=== PATIENT | male | born 1980 | race Caucasian/White ===

== ENCOUNTER 2022-04-12 13:13 | Inpatient (IN) ==
[2022-04-12 15:10] LABS: Basophils # (auto) 0.04 K/uL (0-0.2); Basophils % (auto) 0.4 %; Eosinophils # (auto) 0.16 K/uL (0-0.50); Eosinophils % (auto) 1.8 %; Hematocrit (blood only) 44.6 % (42.0-52.0); Hemoglobin 16.8 g/dl (14.0-18.0); Immature Granulocytes # (auto) 0.04 K/uL (0.01-0.20); Immature Granulocytes % (auto) 0.4 %; Lymphocytes # (auto) 2.96 K/uL (1.2-3.4); Lymphocytes % (auto) 32.8 %; Mean Corpuscular Hemoglobin 37.2 pg (25.0-34.0); Mean Corpuscular Hgb Conc 37.7 g/dL (32.0-36.0); Mean Corpuscular Volume 98.7 fL (80.0-100.0); Mean Platelet Volume 9.6 fL (9.4-12.4); Monocytes # (auto) 0.82 K/uL (0.11-0.59); Monocytes % (auto) 9.1 %; Neutrophils # (auto) 5.01 K/uL (1.40-6.50); Neutrophils % (auto) 55.5 %; Platelet Count 255 K/uL (130-400); RDW Coefficient of Variation 13.8 % (11.5-14.5); RDW Standard Deviation 50.4 fL (36.4-46.3); Red Blood Count 4.52 M/uL (4.70-6.10); White Blood Count 9.03 K/ul (4.8-10.8)
[2022-04-12] MEDS ORDERED: ONDANSETRON INJ 2 MG/ML 2 ML VIAL IV STA (15:30)
[2022-04-12] MEDS ORDERED: SODIUM CHLORIDE 0.9% 1000ML 1,000 ML IV SCH (15:30)
[2022-04-12] MEDS ORDERED: MoRPHine SULFATE 4 MG/ML 1 ML CARP\\VIAL IV STA (15:30)
[2022-04-12] MEDS ORDERED: SODIUM CHLORIDE 0.9% 1000ML 1,000 ML IV ONE (15:30)
--- NOTE | 2022-04-12 15:47 | Emergency Department Note ---
History of Present Illness General Chief Complaint: Abdominal Pain Stated Complaint: abd pain, dr lizette Time Seen by Provider: 04/12/22 15:19 History of Present Illness Provider Complaint: abdominal pain Onset (ago): 2 week(s) Pain Consistency: constant Location: epigastric Radiation: none Severity: moderate Quality: + stabbing, + aching, + sharp and + dull Relieved By: + nothing Exacerbated By: + nothing Context: no foreign travel, no possible food poisoning, no sick contacts, no r ecent antibiotic use, no recent surgery/procedure or no recent injury Associated Symptoms: + nausea and + vomiting; no fever, no chills, no dysuria, no hematemesis, no hematochezia, no melena and no hematuria Home Medications Medication Instructions Recorded Confirmed Type losartan 50 mg tablet 50 mg PO DAILY 04/12/22 04/12/22 History pantoprazole 40 mg tablet,delayed 40 mg PO DAILY 04/12/22 04/12/22 History release Allergies Allergy/AdvReac Type Severity Reaction Status Date / Time No Known Allergies Allergy Verified 04/12/22 16:10 Past Med/Surg History Medical History (Updated 04/12/22 @ 16:27 by Ramos Powell) GERD (gastroesophageal reflux disease) HTN (hypertension) Surgical History (Updated 04/12/22 @ 16:23 by Ramos Powell) S/P orchiopexy Family History (Updated 04/12/22 @ 16:23 by Ramos Powell) Other Heart disease Social History (Updated 04/12/22 @ 16:24 by Ramos Powell) Hx Alcohol Use: Yes Alcohol Intake Frequency Comment: Binge drinker Hx Substance Use: No Feels Safe at Home: Yes Physical Exam Vital Signs: Vital Signs - 24 hr 04/12/22 13:15 04/12/22 15:49 04/12/22 15:50 Temperature 36.8 C Temperature Source Temporal Artery Sc an Pulse Rate 97 H 76 83 Pulse Rate from Sp O2 Sensor 76 83 Respiratory Rate 18 17 18 Blood Pressure 169/122 H Blood Pressure Sheron n 137 Pulse Oximetry 96 97 96 Oxygen Delivery Me thod Room Air Sepsis Recent Feve r Within 48 Hours No Sepsis New/Unexpla ined Change in Men sung Status No Sepsis Action Take n by Nursing No Action Required 04/12/22 16:00 04/12/22 16:00 04/12/22 16:10 Temperature Temperature Source Pulse Rate 78 80 Pulse Rate from Sp O2 Sensor 79 78 Respiratory Rate 16 16 Blood Pressure 176/111 H 175/120 H Blood Pressure Sheron n 132 138 Pulse Oximetry 96 95 Oxygen Delivery Me thod Sepsis Recent Feve r Within 48 Hours Sepsis New/Unexpla ined Change in Men sung Status Sepsis Action Take n by Nursing Physical Exam: Physical Exam GENERAL: He is oriented to person, place, and time. He appears well-developed and well-nourished. HENT: Exam performed. - Head: Normocephalic and atraumatic. EYES: Conjunctivae and EOM are normal. Right eye exhibits no discharge. Left eye exhibits no discharge. No scleral icterus. NECK: Normal range of motion. Neck supple. No JVD present. CV: Normal rate, regular rhythm, normal heart sounds and intact distal pulses. There is no peripheral edema. Palpable radial pulses bue. PULM/CHEST: Effort normal and breath sounds normal. No respiratory distress. No stridor. He has no wheezes. He has no rales. - Chest Wall: He exhibits no tenderness. ABD: The abdomen is soft. Bowel sounds are normal. He has no distension. No mass is present. There is tenderness to palpation of the epigastric area. There is no rebound, no guarding, no Oleary's sign and no tenderness at McBurney's point. Rovsig negative. MUSC/SKEL: Normal range of motion. There is no peripheral edema, tenderness or deformity. LYMPH: No cervical adenopathy. NEURO: He is alert and oriented to person, place, and time. He has normal strength. No cranial nerve deficit or sensory deficit. Coordination and gait normal. GCS eye subscore is 4. GCS verbal subscore is 5. GCS motor subscore is 6 . Cerebellar tests wnl. SKIN: Skin is warm and dry. He is not diaphoretic. PSYCH: He has a normal mood and affect. Behavior is normal. Judgment and thought content normal. Course Course 1518: The patient was evaluated in room C11. A complete history and physical exam was performed Administered Medications Sodium Chloride (Nss 1000ml) 1,000 mls @ 999 mls/hr IV .[id number] ONE Stop: 04/12/22 16:30 Last Admin: 04/12/22 15:44 Dose: 999 mls/hr Documented By: BELIA Sodium Chloride (Nss 1000ml) 1,000 mls @ 80 mls/hr IV .[id number] JAGDEEP Stop: 05/12/22 15:29 Last Admin: 04/12/22 16:19 Dose: 80 mls/hr Documented By: BELIA Discontinued Medications Morphine Sulfate (Morphine Sulfate 4 Mg/Ml 1 Ml Carp\\Vial) 4 mg IV NOW STA Stop: 04/12/22 15:31 Last Admin: 04/12/22 15:45 Dose: 4 mg Documented By: BELIA Ondansetron HCl (Ondansetron Inj 2 Mg/Ml 2 Ml Vial) 4 mg IV NOW STA Stop: 04/12/22 15:31 Last Admin: 04/12/22 15:43 Dose: 4 mg Documented By: BELIA Medical Decision Making Medical Records Attestation: I reviewed the patient's medical records. External medical records reviewed. Brooke internal communications manager was able to obtain the results of the CT abdomen pelvis with IV and oral contrast that was done at [facility] through [facility]. Patient CT abdomen pelvis shows mild. Pancreatic stranding suggestive of acute interstitial pancreatitis with a stated to correlate with lipase. There is a short segment of small bowel intussusception in the left mid abdomen most often an incidental finding of no clinical significance. Laboratory Data Attestation: I reviewed the patient's lab results. 04/12/22 14:40 04/12/22 14:40 Lab Results 04/12/22 04/12/22 04/12/22 Range/Units 14:40 14:40 15:40 WBC 9.03 (4.8-10.8) K/ul RBC 4.52 L (4.70-6.10) M/uL Hgb 16.8 (14.0-18.0) g/dl Hct 44.6 (42.0-52.0) % MCV 98.7 (80.0-100.0) fL MCH 37.2 H (25.0-34.0) pg MCHC 37.7 H (32.0-36.0) g/dL RDW Std Deviation 50.4 H (36.4-46.3) fL RDW Coeff of Henry 13.8 (11.5-14.5) % Plt Count 255 (130-400) K/uL MPV 9.6 (9.4-12.4) fL Immature Gran % (Auto) 0.4 % Neut % (Auto) 55.5 % Lymph % (Auto) 32.8 % Cam[place] % (Auto) 9.1 % Eos % (Auto) 1.8 % Baso % (Auto) 0.4 % Neut # (Auto) 5.01 (1.40-6.50) K/uL Lymph # (Auto) 2.96 (1.2-3.4) K/uL Cam[place] # (Auto) 0.82 H (0.11-0.59) K/uL Eos # (Auto) 0.16 (0-0.50) K/uL Baso # (Auto) 0.04 (0-0.2) K/uL Immature Gran # (Auto) 0.04 (0.01-0.20) K/uL Sodium 136 (136-145) mmol/L Potassium 3.8 (3.5-5.1) mmol/L Chloride 99 (98-107) mmol/L Carbon Dioxide 26 (21-32) mmol/L Anion Gap 11 (3-11) BUN 7 (6-23) mg/dl Creatinine 1.02 (0.6-1.4) mg/dl Est Cr Clr Drug Dosing 109.7 ml/min Est GFR ( Amer) 104.6 ml/min Est GFR (Non-Af Amer) 90.2 ml/min BUN/Creatinine Ratio 6.9 L (10-20) Glucose 85 (70-99(Fasting)) mg/dl Calcium 9.9 (8.5-10.1) mg/dl Total Bilirubin 0.7 (0.2-1.0) mg/dl AST 17 (13-39) U/L ALT 14 (7-52) U/L Alkaline Phosphatase 87 (34-104) U/L Total Protein 7.7 (6.0-8.3) gm/dl Albumin 4.4 (3.4-5.0) gm/dl Globulin 3.3 (2.5-4.0) gm/dl Albumin/Globulin Ratio 1.3 (0.9-2) Lipase 538 H (11-82) U/L SARS-CoV-2, RNA, NAAT NEGATIVE (NEGATIVE) MDM Narrative Vital signs stable. Labs show an elevated lipase. CT of the abdomen pelvis done outpatient shows pancreatitis. There was a incidental finding of left mid abdominal intussusception. Patient with no pain on palpation of the left lower quadrant or left upper quadrant. This is again thought to be incidental no need for repeat emergent imaging in the emergency department at this time. Patient will be admitted to the [facility] hospitalist team Dr. Etienne notified. 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 pantoprazole 40 mg tablet,delayed release (DR/EC) 40 mg PO DAILY Referrals Referrals: Ndaine Waters CRNP [Primary Care Provider] -
[2022-04-12 16:03] LABS: Albumin Globulin Ratio 1.3 (0.9-2); Albumin Level 4.4 gm/dl (3.4-5.0); BUN Creatinine Ratio 6.9 (10-20); Bilirubin,Total 0.7 mg/dl (0.2-1.0); Calcium 9.9 mg/dl (8.5-10.1); Creatinine Clr Calc Pharmacy 109.7 ml/min; Est GFR (African American) 104.6 ml/min; Est GFR (Non-African American) 90.2 ml/min; Globulin 3.3 gm/dl (2.5-4.0); Potassium 3.8 mmol/L (3.5-5.1); Total Protein 7.7 gm/dl (6.0-8.3)
--- NOTE | 2022-04-12 16:26 | History & Physical Report ---
Date of Service April 12, 2022 Assessment & Plan (1) Pancreatitis: (2) Epigastric pain: Plan: Patient is a 41-year-old male with PMH HTN, tobacco use presented to ER with complaint of nonradiating sharp epigastric abdominal pain x 2 weeks, aggravated with eating with associated vomiting. In ER afebrile. No leukocytosis. Lipase: 538. LFTs WNL 04/12/[address] abdomen pelvis with IV and oral contrast: 1. mild peripancreatic stranding suggestive of acute interstitial pancreatitis. Correlate with lipase 2. Short segment small bowel intussusception in the left mid abdomen. This most often an incidental finding of no clinical significance. However, would consider short-term follow-up CT or MRI enterography to ensure resolution and exclude underlying mass lead point. 3. Mild thickened appearance of the descending and sigmoid colon wall could represent mild colitis. There is mild diverticulosis without focal inflammation to suggest acute diverticulitis. 4. A few small hypodense liver lesions are indeterminate. If there is no history of malignancy these are most likely benign. If further characterization is desired, consider contrast-enhanced MRI of the abdomen. In ER given 1 L NSS, Zofran, morphine Pancreatitis likely secondary to alcohol use Start LR at 200ml/hour NPO Morphine as needed CBC, CMP, lipase in a.m. (3) HTN (hypertension): Plan: History hypertension. Not treated with medications for over 6 years per patient self discontinuing BP is elevated in ER at 169/122 PCPs office prescribed losartan 50 mg daily yesterday. Did not start taking yet Start losartan Monitor BP. May need to add additional agent (4) Abnormal CT of the abdomen: Plan: 04/12/[address] abdomen pelvis with IV and oral contrast: Short segment small bowel intussusception in the left mid abdomen. This most often an incidental finding of no clinical significance. However, would consider short-term follow-up CT or MRI enterography to ensure resolution and exclude underlying mass lead point. Mild thickened appearance of the descending and sigmoid colon wall could represent mild colitis. There is mild diverticulosis without focal inflammation to suggest acute diverticulitis. A few small hypodense liver lesions are indeterminate. If there is no history of malignancy these are most likely benign. If further characterization is desired, consider contrast-enhanced MRI of the abdomen. General surgery consult Patient will likely need further outpatient follow-up (5) GERD (gastroesophageal reflux disease): Plan: Continue PPI (6) Tobacco use: Plan: Smoking cessation encouraged Nicotine patch DVT Prophylaxis SCDs Follows with Nadine ACOSTA at [facility] for routine care Pt was seen and care coordinated with Dr Etienne. See addendum I spent a total of 75 minutes reviewing notes, outpatient records, labs, medication, coordinating, documenting and providing care for this patient excluding time spent in the performance of separately billed services. History of Present Illness Chief Complaint: Abdominal pain Primary Care Provider: DAVE Fitzgerald Patient is a 41-year-old male with PMH HTN, tobacco use presented to ER with complaint of abdominal pain x 2 weeks. History obtained from patient and outpatient chart review. Patient reports sharp epigastric pain that is nonradiating. Abdominal pain is aggravated with eating. If he eats more than a very small amount has nausea with associated vomiting. Reports has been having small amount loose stool daily. Has been taking OTC reflux medicine without relief. Drinks 3-6 beers daily. Last drink reported 3 days ago. Denies history of alcohol withdrawal, seizures or DTs. History hypertension however has not been taking medications for over 6 years. Reports when he was previously on BP meds he felt like he had dizziness and headache with taking medicine so he stopped taking. Yesterday established care with [facility] provider. Had labs drawn yesterday with elevated lipase. Today had CT abdomen pelvis that suggested pancreatitis and patient was referred to ER for further evaluation. Reports chronic intermittent non-productive cough that he relates to smoking. Yesterday in clinic had elevated BP of 166/88 and he was prescribed losartan, however has not started yet. Denies fever/chills, diaphoresis, hematemesis, hematochezia, melena, MONTERO, dizziness, syncope, vision changes, neck pain, CP, SOB, orthopnea, palpitations, sore throat, choking, otalgia, rhinorrhea, paresthesias, weakness, extremity weakness, extremity edema, rashes, urinary symptoms. Denies history of abdominal surgery. Denies ill contacts. Outpatient records reviewed 04/12/[address] abdomen pelvis with IV and oral contrast: 1. mild peripancreatic stranding suggestive of acute interstitial pancreatitis. Correlate with lipase 2. Short segment small bowel intussusception in the left mid abdomen. This most often an incidental finding of no clinical significance. However, would consider short-term follow-up CT or MRI enterography to ensure resolution and exclude underlying mass lead point. 3. Mild thickened appearance of the descending and sigmoid colon wall could represent mild colitis. There is mild diverticulosis without focal inflammation to suggest acute diverticulitis. 4. A few small hypodense liver lesions are indeterminate. If there is no history of malignancy these are most likely benign. If further characterization is desired, consider contrast-enhanced MRI of the abdomen. Allergies Allergy/AdvReac Type Severity Reaction Status Date / Time No Known Allergies Allergy Verified 04/12/22 16:10 Home Medications Medication Instructions Recorded Confirmed Type losartan 50 mg tablet 50 mg PO DAILY 04/12/22 04/12/22 History pantoprazole 40 mg tablet,delayed 40 mg PO DAILY 04/12/22 04/12/22 History release Past Med/Surg History Medical History GERD (gastroesophageal reflux disease) HTN (hypertension) Tobacco use Surgical History S/P orchiopexy Family History Father Heart disease Fatal VT age 59 Mother Heart disease Brother Heart disease Fatal VT age 63 Social History Smoking Status: Current every day smoker Tobacco Type: Cigarettes Cigarettes Per Day: 1 pack/day x25 years; Hx Alcohol Use: Yes (3-6 beers daily) Hx Substance Use: No Feels Safe at Home: Yes Review of Systems Review of Systems: All systems reviewed & are unremarkable except as noted in HPI & below Physical Exam Physical Exam: General: no acute distress, WDWN Head: normocephalic, atraumatic Eyes: conjunctiva non-injected, anicteric ENT: normal inspection external ears, nose, mucous membranes moist Neck: supple, trachea midline, non-tender Lungs: no respiratory distress, +wheezing throughout, no rhonchi/rales CV: RRR, no murmur, no pretibial edema Abd: normal BS, soft, +tenderness to palpation epigastric without rebound or guarding Ext: no cyanosis, no calf tenderness Neuro: A&O x 3, no focal deficits noted, normal affect Skin: warm, dry Results & Data Results & Data ([facility]) Vital Signs (Past 12 Hours) Vital Signs Temp Pulse Resp BP Pulse Ox O2 Del Method 04/12/22 16:10 80 16 175/120 H 95 04/12/22 16:00 78 16 96 04/12/22 16:00 176/111 H 04/12/22 15:50 83 18 96 04/12/22 15:49 76 17 97 04/12/22 13:15 36.8 C 97 H 18 169/122 H 96 Room Air Laboratory Results Short CBC 04/12/22 Range/Units 14:40 WBC 9.03 (4.8-10.8) K/ul Hgb 16.8 (14.0-18.0) g/dl Hct 44.6 (42.0-52.0) % Plt Count 255 (130-400) K/uL BMP 04/12/22 14:40 Sodium 136 Potassium 3.8 Chloride 99 Carbon Dioxide 26 BUN 7 Creatinine 1.02 Glucose 85 Calcium 9.9 Liver Function 04/12/22 Range/Units 14:40 Total Bilirubin 0.7 (0.2-1.0) mg/dl AST 17 (13-39) U/L ALT 14 (7-52) U/L Alkaline Phosphatase 87 (34-104) U/L Albumin 4.4 (3.4-5.0) gm/dl Supervising Physician Co-Signing Physician Notes I have seen and examined the patient and have discussed the case with the provider above. I agree with the assessment and plan as stated. The patient is a 41-year-old man with ongoing tobacco use and heavy alcohol use who presents with acute pancreatitis. Symptoms have been ongoing for the past 2 weeks. He also reports having a small amount of loose stool daily. Last drink was reported to be last night. He denies history of alcohol withdrawal. On physical exam he is in no acute distress. There is no jaundice and he has no gross focal neurologic deficits. Lungs are clear to auscultation bilaterally and cardiac exam is benign. He is euvolemic to dry on exam. There is epigastric discomfort but otherwise the abdomen is benign, soft and nontender nondistended. He has no guarding with abdomen palpation. Work-up in the ER reveals a CBC with no leukocytosis, H&H of 16.8/44.6. Normal platelets. Chemistry is within normal limits. Liver function panel is unremarkable. Lipase is elevated at 538. There was no onsite imaging performed however there was an outpatient CT with IV contrast and oral contrast performed today revealing mild peripancreatic stranding suggestive of pancreatitis. There was also a short segment of small bowel intussusception in the left midabdomen and mildly thickened descending and sigmoid colon which could represent a mild colitis. There were also a few hypodense liver lesions that were indeterminate. 1. Acute pancreatitis possible secondary to alcohol use 2. hypertensive urgency 3. heavy alcohol use 4. smoking Cont aggressive IVF resuscitation and bowel rest for treatment of acute pancreatitis. There is no evidence of alcohol withdrawal, however, his blood pressure is very elevated. He was started on losartan 40mg daily as outpatient but this has not yet been started. This was started today and hydralazine also ordered. AWSS scale for Ativan as needed if withdrawal symptoms begin. MR abdomen to better elucidate liver lesions seen on outpatient CT. Smoking and alcohol cessation was strongly recommended. The patient verbalized understanding. Surgery consulted regarding finding of small bowel intussusception. DO Lowell (1) Pancreatitis Acute pancreatitis complication: unspecified Chronicity: acute Pancreatitis type: alcohol induced Qualified Code(s): K85.20 - Alcohol induced acute pancreatitis without necrosis or infection
[2022-04-12] MEDS ORDERED: LOSARTAN POTASSIUM 50 MG TAB PO ONE (17:08)
[2022-04-12] MEDS ORDERED: ACETAMINOPHEN 325 MG TAB PO PRN (18:11)
[2022-04-12] MEDS ORDERED: LACTATED RINGER'S 1,000 ML IV SCH (18:11)
[2022-04-12] MEDS ORDERED: ONDANSETRON INJ 2 MG/ML 2 ML VIAL IV PRN (18:11)
[2022-04-12] MEDS ORDERED: POLYETHYLENE (MIRALAX) 17 GM PACK PO PRN (18:11)
[2022-04-12] MEDS ORDERED: hydrALAZINE HCL 20 MG/ML VIAL IV STA (18:35)
[2022-04-12] MEDS ORDERED: THIAMINE HCL 100 MG/ML 2 ML VIAL IM STA (18:36)
[2022-04-12] MEDS ORDERED: LORazepam 2 MG/1 ML VIAL IV PRN (18:36)
[2022-04-12] MEDS: NICOTINE 21 MG/24 HR TDSY TD SCH (19:26)
--- NOTE | 2022-04-12 19:58 | Surgery Consultation ---
Date of Consultation April 12, 2022 Assessment & Plan (1) Abnormal CT of the abdomen: Patient has been admitted on the hospitalist service. Recommend proceeding as follows: Implement n.p.o. status due to the patient's noted pancreatitis Provide analgesics Provide antiemetics Provide aggressive intravenous fluids. He is currently receiving lactated Ringer's at 200 cc/h As noted we do not have the images available of patient's CT scan. We will request that these images get pushed to the [facility] synapse so they can be viewed. The primary service has ordered an MRI of the patient's abdomen for further evaluation of the intussusception. We will follow for the results of the study. At the present time the patient's abdominal exam is benign and he does not need urgent surgical intervention Supervising Physician Co-Signing Physician Notes Patient discussed with RANDI Joy, labs reviewed, agree with above. 41-year-old male referred after outpatient CT scan for 2 weeks of epigastric a bdominal pain showed pancreatitis. Also incidental noted short segment intussusception which is likely secondary to peristalsis but recommended short interval follow-up with CT enterography or MRI. Currently stable, would recommend right upper quadrant ultrasound to rule out cholelithiasis as a possibility for his cause of pancreatitis. Short segment intussusception is likely just peristalsis, but follow-up imaging could be performed on an outpatient basis. Would also recommend GI consult. History of Present Illness Reason for Consultation: Possible small bowel intussusception Attending Physician: Jennifer Etienne, History of Present Illness This is a 41-year-old male who presented to [facility] at the recommendation of his outpatient providers. The patient notes that he has been having approximately 2 weeks of epigastric pain. He notes that the pain is worse with eating and when he does eat he gets nausea and vomiting. He notes that the pain radiates to his back. He has never had pain like this before. As noted the pain is worse after he eats. He does not note any palliative factors other than pain medications that were administered. He denies any fevers, shakes, or chills. The patient does note that since his abdominal pain began he has been having loose bowel movements. He notes that at times his bowel movements do appear black/melanotic. He notes that he has never had a colonoscopy in the past. Patient notes that he does consume alcohol approximately 1 case of beer per week. 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 Since arrival to [facility] the patient has had labs and imaging which independent reviewed. CBC revealed white blood cell count, hemoglobin, hematocrit, and platelet count were normal. Chemistry profile showed sodium and potassium were normal. His BUN and creatinine were noted to be normal. His LFTs were noted to be nonelevated. His lipase was elevated at 538. A COVID test was negative. The patient reportedly had an outpatient CT scan at [facility]. The images were not reviewed but per reports said that the patient had mild peripancreatic stranding suggestive of acute pancreatitis. There is also a short segment of small bowel intussusception in the left mid abdomen. The interpreting radiologist noted that this could have been a incidental finding of no clinical significance. There is also some mild thickening of the descending and sigmoid colon which were felt to represent colitis. Mild diverticulosis was noted without any findings suggestive of acute diverticulitis. At the time of my interview the patient was resting comfortably in bed he was in no distress. Allergies Allergy/AdvReac Type Severity Reaction Status Date / Time No Known Allergies Allergy Verified 04/12/22 16:10 Home Medications Medication Instructions Recorded Confirmed Type losartan 50 mg tablet 50 mg PO DAILY 04/12/22 04/12/22 History pantoprazole 40 mg tablet,delayed 40 mg PO DAILY 04/12/22 04/12/22 History release Patient History Medical History GERD (gastroesophageal reflux disease) HTN (hypertension) Tobacco use Surgical History S/P orchiopexy Family History Father Heart disease Fatal IA age 59 Mother Heart disease Brother Heart disease Fatal IA age 63 Social History Smoking Status: Current every day smoker Tobacco Type: Cigarettes Cigarettes Per Day: 1 pack/day x25 years; Hx Alcohol Use: Yes (3-6 beers daily) Hx Substance Use: No Feels Safe at Home: Yes Review of Systems Constitutional: no fever and no chills Eyes: no eye pain Ear, Nose, Mouth, Throat: no ear pain Respiratory: no cough and no dyspnea Cardiovascular: no chest pain Gastrointestinal: as per Subjective / HPI Genitourinary: no dysuria Musculoskeletal: + back pain (Radiating from abdomen) Integumentary: no rash Neurologic: no localized weakness Physical Exam Constitutional: WD/WN, vitals as above Eyes: + anicteric sclerae; no conjunctival abnormality ENMT: Ears: no hearing impairment and no external ear abnormality Mouth: no oropharynx abnormality Neck: trachea midline Respiratory: normal respiratory effort; no respiratory distress and no labored breathing Cardiovascular: Rate/Rhythm: regular rate and regular rhythm Gastrointestinal (Abdomen): Abdomen is soft, nonrigid, nondistended. There is no evidence of Cobb Lopes's or Norton sign. There is no rebound tenderness or guarding with palpation. Patient did have pain noted in the epigastric region with deep palpation. He did not have any pain in any other quadrant or region of his abdomen. Musculoskeletal: No calf tenderness Skin: no rashes Neurologic: moves all extremities Psychiatric: A+Ox3, euthymic affect Results & Data ([facility]) Vital Signs (Past 12 Hours) Vital Signs Temp Pulse Pulse Resp BP BP Pulse Ox 04/12/22 19:45 04/12/22 19:27 36.6 C 65 18 168/113 H 93 04/12/22 19:02 62 04/12/22 18:12 36.7 C 18 205/139 H 96 04/12/22 18:02 74 18 151/114 H 96 04/12/22 17:00 73 20 95 04/12/22 17:00 177/117 H 04/12/22 16:30 76 18 95 04/12/22 16:30 165/113 H 04/12/22 16:20 175/120 H 04/12/22 16:20 77 16 97 04/12/22 16:10 80 16 175/120 H 95 04/12/22 16:00 78 16 96 04/12/22 16:00 176/111 H 04/12/22 15:50 83 18 96 04/12/22 15:49 76 17 97 04/12/22 13:15 36.8 C 97 H 18 169/122 H 96 O2 Del Method 04/12/22 19:45 Room Air 04/12/22 19:27 Room Air 04/12/22 19:02 04/12/22 18:12 Room Air 04/12/22 18:02 Room Air 04/12/22 17:00 04/12/22 17:00 04/12/22 16:30 04/12/22 16:30 04/12/22 16:20 04/12/22 16:20 04/12/22 16:10 04/12/22 16:00 04/12/22 16:00 04/12/22 15:50 04/12/22 15:49 04/12/22 13:15 Room Air PG Care Time/CCT Total # of Minutes Spent Total Time Spent with Patient: Total time spent is greater than 50% in coordination of care (as documented) at patient's floor/unit and/or counseling patient: Coding Level of Care Code INP/OBS CONSULT LVL 5, [address] of the abdomen R93.5
[2022-04-12] MEDS: LACTATED RINGER'S 1,000 ML IV SCH (20:17)
[2022-04-12] MEDS: MoRPHine SULFATE 4 MG/ML 1 ML CARP\\VIAL IV PRN (20:17)
[2022-04-12] MEDS ORDERED: GADOXETATE DISODIUM IV ONE (23:10)
[2022-04-13] MEDS: LACTATED RINGER'S 1,000 ML IV SCH ×5 (03:16→23:35)
--- NOTE | 2022-04-13 06:48 | Ultrasound Report ---
ABDOMINAL ULTRASOUND, RIGHT UPPER QUADRANT HISTORY: Acute epigastric abdominal pain pancreatitis. COMPARISON: MRI abdomen of same day. FINDINGS: Pancreas: The pancreas is mostly obscured by bowel gas. No acute peripancreatic fluid collection iden tified by ultrasound. Liver: There are 3 hyperechoic lesions within the right lobe of the liver, largest of which measures 1.7 x 1.1 x 1.5 cm. The 2 other lesions are subcentimeter. Hepatopedal flow within the main portal ve in. Gallbladder: No gallbladder wall thickening. Trace gallbladder sludge. No gallstones. CBD: 0.4 cm Right kidney: No hydronephrosis. 1.3 x 1.2 x 1.3 cm septated cyst within the inferior pole right kidn ey. IMPRESSION: 1. The pancreas is mostly obscured by bowel gas. 2. No cholelithiasis or sonographic evidence of acute cholecystitis. 3. There are three indeterminate hyperechoic small lesions within the liver. Please refer to the MRI abdomen study of same day for additional details. ACT 112: Negative or not required by law. Electronically signed by: Thanh Morales M.D. 04/13/2022 6:45 AM
[2022-04-13] MEDS: PANTOprazole 40 MG TAB PO SCH (07:32)
[2022-04-13] MEDS: THIAMINE HCL 100 MG TAB PO SCH (07:33)
[2022-04-13] MEDS: LOSARTAN POTASSIUM 50 MG TAB PO SCH (07:33)
[2022-04-13] MEDS: FOLIC ACID 1 MG TAB PO SCH (07:33)
[2022-04-13] MEDS: NICOTINE 21 MG/24 HR TDSY TD SCH (08:25)
[2022-04-13] MEDS: MoRPHine SULFATE 4 MG/ML 1 ML CARP\\VIAL IV PRN (08:32)
[2022-04-13 09:27] LABS: Hematocrit (blood only) 40.3 % (42.0-52.0); Hemoglobin 14.5 g/dl (14.0-18.0); Mean Corpuscular Hemoglobin 36.4 pg (25.0-34.0); Mean Corpuscular Volume 101.3 fL (80.0-100.0); Mean Platelet Volume 9.7 fL (9.4-12.4); Platelet Count 225 K/uL (130-400); RDW Coefficient of Variation 13.8 % (11.5-14.5); RDW Standard Deviation 51.4 fL (36.4-46.3); Red Blood Count 3.98 M/uL (4.70-6.10); White Blood Count 6.23 K/ul (4.8-10.8)
[2022-04-13 09:39] LABS: Albumin Globulin Ratio 1.3 (0.9-2); Albumin Level 3.6 gm/dl (3.4-5.0); BUN Creatinine Ratio 7.3 (10-20); Bilirubin,Total 0.8 mg/dl (0.2-1.0); Creatinine Clr Calc Pharmacy 136.4 ml/min; Est GFR (African American) 126.4 ml/min; Est GFR (Non-African American) 109.1 ml/min; Globulin 2.8 gm/dl (2.5-4.0); Potassium 3.9 mmol/L (3.5-5.1); Total Protein 6.4 gm/dl (6.0-8.3)
--- NOTE | 2022-04-13 12:07 | Magnetic Resonance Report ---
MR abdomen wo/w con HISTORY: 41 years-old Male indeterminate liver lesions on outpt CT follow-up study in a patient with indeterminate liver lesions COMPARISON: Ultrasound of same day, CT 04/22/2022 TECHNIQUE: Multiplanar multisequence MRI of the abdomen was obtained both with and without the use of 10 cc Gadavist FINDINGS: Bobbin Dumper localizer images demonstrate no gross extra abdominal abnormality. Mild to moderate interverteb ral disc space narrowing at L5-S1 with posterior disc osteophyte complex again noted. No acute fractu re identified. The spleen, gallbladder and adrenal glands are unremarkable. There is mild interstitial and peripancr eatic edema involving the body and tail of the pancreas. No pancreatic ductal dilation, pancreatic le marilin or peripancreatic fluid collection. The portal, splenic and superior mesenteric veins appear pat ent. Unremarkable aorta and IVC. No bowel obstruction or bowel wall thickening. Unremarkable soft tissues. Cortical scarring with atro phy of the mid to inferior pole left kidney. There are a few cysts again noted within the bilateral k idneys measuring up to 1.4 cm on the right and 1.6 cm on the left. A few cysts within the superior po le left kidney demonstrate areas of intrinsic increased T1 signal suggestive of proteinaceous or hemo rrhagic cysts, notably a 1.4 cm cyst of the superior pole left kidney with a thin internal septation. There are at least eight T2 hyperintense foci noted within the right hepatic lobe, the largest measur ing 1.1 cm on image 10 series 5. Most of these foci only measure a few millimeters and are too small to characterize. These lesions are difficult to evaluate secondary to motion artifact and small size. There is questioned mild peripheral discontinuous nodular enhancement within the 1.1 cm lesion. Unre markable MRCP images. The common bile duct is normal measuring 3 mm. No pancreatic ductal dilation. IMPRESSION: 1. Findings compatible with mild acute uncomplicated pancreatitis. No evidence of pancreatic necrosis or acute peripancreatic fluid collection. 2. Unremarkable gallbladder without biliary ductal dilation. 3. Several mostly subcentimeter hepatic lesions are suboptimally evaluated secondary to the small siz e and motion artifact and are favored to be benign. These may represent small hemangiomas. 4. Cortical scarring with severe atrophy of the mid to inferior pole left kidney. 5. Complex cysts of the superior pole left kidney including a 1.1 cm lesion with a central septation. Six-month follow-up ultrasound recommended. ACT 112: Negative or not required by law. The above report was generated using voice recognition software. It may contain grammatical, syntax o r spelling errors. Electronically signed by: Thanh Morales M.D. 04/13/2022 12:06 PM
--- NOTE | 2022-04-13 15:10 | Surgery Progress Note ---
Date of Service April 13, 2022 Assessment & Plan (1) Pancreatitis: Plan: 41-year-old male with pancreatitis and short segment intussusception on outpatient CT. Right upper quadrant ultrasound negative for gallstones, MRCP with no evidence of choledocholithiasis. MRI did not show intussusception or small bowel tumor. This was likely incidental and just found on CT during peristalsis. No surgical intervention indicated Surgery will sign off call with questions or concerns Admission and Anticipated Discharge Date Admission Date: April 12, 2022 Subjective 41-year-old male admitted with pancreatitis and incidental finding on outpatient CT of short segment intussusception. Feeling better, tolerating liquids. Denies significant alcohol use. Physical Exam Constitutional: WD/WN, vitals as above Gastrointestinal (Abdomen): normal bowel sounds, soft, nontender, no hepatosplenomegaly Results & Data ([facility]) Vital Signs (Past 12 Hours) Vital Signs Temp Pulse Pulse Resp BP Pulse Ox O2 Del Method 04/13/22 14:44 37.0 C 78 18 160/115 H 94 Room Air 04/13/22 10:48 36.7 C 69 18 164/103 H 94 Room Air 04/13/22 07:21 72 04/13/22 07:20 36.7 C 71 18 166/104 H 94 Room Air 04/13/22 03:26 36.7 C 75 18 147/102 H 94 Room Air Laboratory Results Laboratory Results - last 24 hr 04/12/22 04/12/22 04/12/22 14:40 14:40 15:40 WBC 9.03 RBC 4.52 L Hgb 16.8 Hct 44.6 MCV 98.7 MCH 37.2 H MCHC 37.7 H RDW Std Deviation 50.4 H RDW Coeff of Henry 13.8 Plt Count 255 MPV 9.6 Immature Gran % (Auto) 0.4 Neut % (Auto) 55.5 Lymph % (Auto) 32.8 Republic % (Auto) 9.1 Eos % (Auto) 1.8 Baso % (Auto) 0.4 Neut # (Auto) 5.01 Lymph # (Auto) 2.96 Republic # (Auto) 0.82 H Eos # (Auto) 0.16 Baso # (Auto) 0.04 Immature Gran # (Auto) 0.04 Sodium 136 Potassium 3.8 Chloride 99 Carbon Dioxide 26 Anion Gap 11 BUN 7 Creatinine 1.02 Est Cr Clr Drug Dosing 109.7 Est GFR ( Amer) 104.6 Est GFR (Non-Af Amer) 90.2 BUN/Creatinine Ratio 6.9 L Glucose 85 Calcium 9.9 Total Bilirubin 0.7 AST 17 ALT 14 Alkaline Phosphatase 87 Total Protein 7.7 Albumin 4.4 Globulin 3.3 Albumin/Globulin Ratio 1.3 Lipase 538 H SARS-CoV-2, RNA, NAAT NEGATIVE 04/13/22 04/13/22 08:40 08:40 WBC 6.23 RBC 3.98 L Hgb 14.5 Hct 40.3 L MCV 101.3 H MCH 36.4 H MCHC 36.0 RDW Std Deviation 51.4 H RDW Coeff of Henry 13.8 Plt Count 225 MPV 9.7 Immature Gran % (Auto) Neut % (Auto) Lymph % (Auto) Republic % (Auto) Eos % (Auto) Baso % (Auto) Neut # (Auto) Lymph # (Auto) Republic # (Auto) Eos # (Auto) Baso # (Auto) Immature Gran # (Auto) Sodium 136 Potassium 3.9 Chloride 105 Carbon Dioxide 26 Anion Gap 5 BUN 6 Creatinine 0.82 Est Cr Clr Drug Dosing 136.4 Est GFR ( Amer) 126.4 Est GFR (Non-Af Amer) 109.1 BUN/Creatinine Ratio 7.3 L Glucose 75 Calcium 9.0 Total Bilirubin 0.8 AST 14 ALT 10 Alkaline Phosphatase 65 Total Protein 6.4 Albumin 3.6 Globulin 2.8 Albumin/Globulin Ratio 1.3 Lipase 278 H SARS-CoV-2, RNA, NAAT Diagnostic Findings MR abdomen wo/w con HISTORY: 41 years-old Male indeterminate liver lesions on outpt CT follow-up study in a patient with indeterminate liver lesions COMPARISON: Ultrasound of same day, CT 04/22/2022 TECHNIQUE: Multiplanar multisequence MRI of the abdomen was obtained both with and without the use of 10 cc Gadavist FINDINGS: Senior Developer localizer images demonstrate no gross extra abdominal abnormality. Mild to moderate intervertebral disc space narrowing at L5-S1 with posterior disc osteophyte complex again noted. No acute fracture identified. The spleen, gallbladder and adrenal glands are unremarkable. There is mild interstitial and peripancreatic edema involving the body and tail of the pancreas. No pancreatic ductal dilation, pancreatic lesion or peripancreatic fluid collection. The portal, splenic and superior mesenteric veins appear patent. Unremarkable aorta and IVC. No bowel obstruction or bowel wall thickening. Unremarkable soft tissues. Cortical scarring with atrophy of the mid to inferior pole left kidney. There are a few cysts again noted within the bilateral kidneys measuring up to 1.4 cm on the right and 1.6 cm on the left. A few cysts within the superior pole left kidney demonstrate areas of intrinsic increased T1 signal suggestive of protein aceous or hemorrhagic cysts, notably a 1.4 cm cyst of the superior pole left kidney with a thin internal septation. There are at least eight T2 hyperintense foci noted within the right hepatic lobe, the largest measuring 1.1 cm on image 10 series 5. Most of these foci only measure a few millimeters and are too small to characterize. These lesions are difficult to evaluate secondary to motion artifact and small size. There is questioned mild peripheral discontinuous nodular enhancement within the 1.1 cm lesion. Unremarkable MRCP images. The common bile duct is normal measuring 3 mm. No pancreatic ductal dilation. IMPRESSION: 1. Findings compatible with mild acute uncomplicated pancreatitis. No evidence of pancreatic necrosis or acute peripancreatic fluid collection. 2. Unremarkable gallbladder without biliary ductal dilation. 3. Several mostly subcentimeter hepatic lesions are suboptimally evaluated secondary to the small size and motion artifact and are favored to be benign. These may represent small hemangiomas. 4. Cortical scarring with severe atrophy of the mid to inferior pole left kidney. 5. Complex cysts of the superior pole left kidney including a 1.1 cm lesion with a central septation. Six-month follow-up ultrasound recommended. PG Care Time/CCT Total # of Minutes Spent Total Time Spent with Patient: Total time spent is greater than 50% in coordination of care (as documented) at patient's floor/unit and/or counseling patient: Coding Level of Care Code 82608 SUB INP/OBS CARE 03/29MIN Diagnoses Pancreatitis K85.20 Acute pancreatitis complication: unspecified Chronicity: acute Pancreatitis type: alcohol induced (1) Pancreatitis Acute pancreatitis complication: unspecified Chronicity: acute Pancreatitis type: alcohol induced Qualified Code(s): K85.20 - Alcohol induced acute pancreatitis without necrosis or infection
--- NOTE | 2022-04-13 17:18 | Hospitalist Progress Note ---
Date of Service April 13, 2022 Assessment & Plan (1) Pancreatitis: (2) Epigastric pain: Plan: Patient is a 41-year-old male with PMH HTN, tobacco use presented to ER with complaint of nonradiating sharp epigastric abdominal pain x 2 weeks, aggravated with eating with associated vomiting. In ER afebrile. No leukocytosis. Lipase: 538. LFTs WNL Acute pancreatitis: POA --Likely due to alcohol use --MRI Abdomen:Findings compatible with mild acute uncomplicated pancreatitis. No evidence of pancreatic necrosis or acute peripancreatic fluid collection. Unremarkable gallbladder without biliary ductal dilation. Several mostly subcentimeter hepatic lesions are suboptimally evaluated secondary to the small size and motion artifact and are favored to be benign. These may represent small hemangiomas. Cortical scarring with severe atrophy of the mid to inferior pole left kidney. Complex cysts of the superior pole left kidney including a 1.1 cm lesion with a central septation. Six-month follow-up ultrasound recommended. --Gall Bladder USD:The pancreas is mostly obscured by bowel gas. No cholelithiasis or sonographic evidence of acute cholecystitis. There are three indeterminate hyperechoic small lesions within the liver. Please refer to the MRI abdomen study of same day for additional details. -- Advised to quit alcohol -Appreciate surgery input --Clear liquid diet for now --Continue IV fluids --Pain control --Lipase levels trending down Hepatic lesions Likely small hemangiomas Follow-up as outpatient Complex cysts of the left kidney Incidental finding on imaging May need repeat imaging in 6 months to monitor Alcohol use Monitor for withdrawal Ativan as needed Continue thiamine, folic acid Counseled to quit drinking (3) HTN (hypertension): Plan: H/O hypertension. Not treated with medications for over 6 years per patient self discontinuing PCPs office prescribed losartan 50 mg daily yesterday. Did not start taking yet -- Continue losartan Hydralazine as needed (4) Abnormal CT of the abdomen: Plan: 04/12/[address] abdomen pelvis with IV and oral contrast: Short segment small bowel intussusception in the left mid abdomen. This most often an incidental finding of no clinical significance. However, would consider short-term follow-up CT or MRI enterography to ensure resolution and exclude underlying mass lead point. Mild thickened appearance of the descending and sigmoid colon wall could represent mild colitis. There is mild diverticulosis without focal inflammation to suggest acute diverticulitis. A few small hypodense liver lesions are indeterminate. If there is no history of malignancy these are most likely benign. If further characterization is desired, consider contrast-enhanced MRI of the abdomen. -- MRI did not show any intussusception or small bowel tumor No surgical intervention needed Appreciate surgery input (5) GERD (gastroesophageal reflux disease): Plan: Continue PPI (6) Tobacco use: Plan: Smoking cessation encouraged Nicotine patch DVT Prophylaxis SCDs for now Admission and Anticipated Discharge Date Admission Date: April 12, 2022 Subjective Patient is seen and examined at bedside Abdominal pain better when compared to yesterday Denies any nausea, vomiting, diarrhea, chest pain, dyspnea, dizziness No other complaints Blood pressure elevated today Review of Systems Review of Systems: All systems reviewed & are unremarkable except as noted in Subjective Physical Exam Physical Exam: Physical Exam: Vitals signs as noted above General Appearance:Well built and nourished, no apparent distress Head: normocephalic, Atraumatic Eyes: normal inspection, EOMI Neck: supple, Trachea midline Respiratory/Chest: Normal breath sounds, CTA, No accessory muscle use Cardiovascular: S1, S2, No murmur Abdomen/GI:Soft, Epigastric tender, Bowel sounds present Extremities/Musculoskeletal:normal inspection, no edema Neurologic/Psych:AAOX3, grossly no focal neurological deficits Skin: normal color, warm Results & Data Results & Data ([facility]) Vital Signs (Past 12 Hours) Vital Signs Temp Pulse Pulse Resp BP Pulse Ox O2 Del Method 04/13/22 15:39 86 04/13/22 14:44 37.0 C 78 18 160/115 H 94 Room Air 04/13/22 10:48 36.7 C 69 18 164/103 H 94 Room Air 04/13/22 07:21 72 04/13/22 07:20 36.7 C 71 18 166/104 H 94 Room Air Laboratory Results Short CBC 04/13/22 Range/Units 08:40 WBC 6.23 (4.8-10.8) K/ul Hgb 14.5 (14.0-18.0) g/dl Hct 40.3 L (42.0-52.0) % Plt Count 225 (130-400) K/uL BMP 04/13/22 08:40 Sodium 136 Potassium 3.9 Chloride 105 Carbon Dioxide 26 BUN 6 Creatinine 0.82 Glucose 75 Calcium 9.0 Liver Function 02/09/23 Range/Units 08:40 Total Bilirubin 0.8 (0.2-1.0) mg/dl AST 14 (13-39) U/L ALT 10 (7-52) U/L Alkaline Phosphatase 65 (34-104) U/L Albumin 3.6 (3.4-5.0) gm/dl (1) Pancreatitis Acute pancreatitis complication: unspecified Chronicity: acute Pancreatitis type: alcohol induced Qualified Code(s): K85.20 - Alcohol induced acute pancreatitis without necrosis or infection
[2022-04-13] MEDS: hydrALAZINE HCL 20 MG/ML VIAL IV PRN (23:50)
[2022-04-14] MEDS: LACTATED RINGER'S 1,000 ML IV SCH ×3 (04:52→13:42)
[2022-04-14 07:17] LABS: Hematocrit (blood only) 40.8 % (42.0-52.0); Hemoglobin 14.5 g/dl (14.0-18.0); Mean Corpuscular Hemoglobin 36.2 pg (25.0-34.0); Mean Corpuscular Hgb Conc 35.5 g/dL (32.0-36.0); Mean Corpuscular Volume 101.7 fL (80.0-100.0); Mean Platelet Volume 9.4 fL (9.4-12.4); Platelet Count 241 K/uL (130-400); RDW Coefficient of Variation 13.9 % (11.5-14.5); RDW Standard Deviation 52.9 fL (36.4-46.3); Red Blood Count 4.01 M/uL (4.70-6.10); White Blood Count 6.57 K/ul (4.8-10.8)
[2022-04-14 07:31] LABS: Magnesium 1.8 mg/dl (1.7-2.4); Potassium 3.8 mmol/L (3.5-5.1)
[2022-04-14 07:36] LABS: BUN Creatinine Ratio 6.1 (10-20); Creatinine Clr Calc Pharmacy 136.4 ml/min; Est GFR (African American) 126.4 ml/min; Est GFR (Non-African American) 109.1 ml/min
[2022-04-14] MEDS: LOSARTAN POTASSIUM 50 MG TAB PO SCH (07:54)
[2022-04-14] MEDS: FOLIC ACID 1 MG TAB PO SCH (07:55)
[2022-04-14] MEDS: THIAMINE HCL 100 MG TAB PO SCH (07:55)
[2022-04-14] MEDS: PANTOprazole 40 MG TAB PO SCH (07:55)
[2022-04-14] MEDS: NICOTINE 21 MG/24 HR TDSY TD SCH (07:55)
[2022-04-14] MEDS: hydrALAZINE HCL 20 MG/ML VIAL IV PRN (12:20)
--- NOTE | 2022-04-14 13:23 | Hospitalist Progress Note ---
Date of Service April 14, 2022 Assessment & Plan (1) Pancreatitis: (2) Epigastric pain: Plan: Patient is a 41-year-old male with PMH HTN, tobacco use presented to ER with complaint of nonradiating sharp epigastric abdominal pain x 2 weeks, aggravated with eating with associated vomiting. In ER afebrile. No leukocytosis. Lipase: 538. LFTs WNL Acute pancreatitis: POA --Likely due to alcohol use --MRI Abdomen:Findings compatible with mild acute uncomplicated pancreatitis. No evidence of pancreatic necrosis or acute peripancreatic fluid collection. Unremarkable gallbladder without biliary ductal dilation. Several mostly subcentimeter hepatic lesions are suboptimally evaluated secondary to the small size and motion artifact and are favored to be benign. These may represent small hemangiomas. Cortical scarring with severe atrophy of the mid to inferior pole left kidney. Complex cysts of the superior pole left kidney including a 1.1 cm lesion with a central septation. Six-month follow-up ultrasound recommended. --Gall Bladder USD:The pancreas is mostly obscured by bowel gas. No cholelithiasis or sonographic evidence of acute cholecystitis. There are three indeterminate hyperechoic small lesions within the liver. Please refer to the MRI abdomen study of same day for additional details. -- Advised to quit alcohol -Appreciate surgery input --Clear liquid diet >>>Advanced to low fat diet today --Decrease IV fluids --Pain control --Lipase levels trended down --Plan to discharge home today if tolerated diet Hepatic lesions Likely small hemangiomas Advised to follow-up as outpatient Complex cysts of the left kidney Incidental finding on imaging May need repeat imaging in 6 months to monitor Alcohol use Monitor for withdrawal Ativan as needed Continue thiamine, folic acid Counseled to quit drinking (3) HTN (hypertension): Plan: H/O hypertension. Not treated with medications for over 6 years per patient se lf discontinuing PCPs office prescribed losartan 50 mg daily yesterday. Did not start taking yet -- Continue losartan --Hydralazine as needed (4) Abnormal CT of the abdomen: Plan: 04/12/[address] abdomen pelvis with IV and oral contrast: Short segment small bowel intussusception in the left mid abdomen. This most often an incidental finding of no clinical significance. However, would consider short-term follow-up CT or MRI enterography to ensure resolution and exclude underlying mass lead point. Mild thickened appearance of the descending and sigmoid colon wall could represent mild colitis. There is mild diverticulosis without focal inflammation to suggest acute diverticulitis. A few small hypodense liver lesions are indeterminate. If there is no history of malignancy these are most likely benign. If further characterization is desired, consider contrast-enhanced MRI of the abdomen. -- MRI did not show any intussusception or small bowel tumor No surgical intervention needed Appreciate surgery input (5) GERD (gastroesophageal reflux disease): Plan: Continue PPI (6) Tobacco use: Plan: Smoking cessation encouraged Nicotine patch DVT Prophylaxis SCDs for now Admission and Anticipated Discharge Date Admission Date: April 12, 2022 Subjective Patient is seen and examined at bedside Abdominal pain resolved No new complaints Denies any nausea, vomiting, diarrhea, chest pain, dyspnea, dizziness Tolerated liquid diet Review of Systems Review of Systems: All systems reviewed & are unremarkable except as noted in Subjective Physical Exam Physical Exam: Physical Exam: Vitals signs as noted above General Appearance:Well built and nourished, no apparent distress Head: normocephalic, Atraumatic Eyes: normal inspection, EOMI Neck: supple, Trachea midline Respiratory/Chest: Normal breath sounds, CTA, No accessory muscle use Cardiovascular: S1, S2, No murmur Abdomen/GI:Soft, non tender, Bowel sounds present Extremities/Musculoskeletal:normal inspection, no edema Neurologic/Psych:AAOX3, grossly no focal neurological deficits Skin: normal color, warm Results & Data Results & Data ([facility]) Vital Signs (Past 12 Hours) Vital Signs Temp Pulse Pulse Resp BP BP Pulse Ox 04/14/22 08:00 77 04/14/22 11:22 36.8 C 65 20 173/108 H 94 04/14/22 09:40 80 163/119 H 04/14/22 08:01 36.8 C 75 20 177/114 H 95 04/14/22 03:28 36.8 C 84 20 159/99 H 94 04/14/22 02:25 144/99 H O2 Del Method 04/14/22 08:00 04/14/22 11:22 Room Air 04/14/22 09:40 04/14/22 08:01 Room Air 04/14/22 03:28 Room Air 04/14/22 02:25 Laboratory Results Short CBC 04/14/22 Range/Units 06:29 WBC 6.57 (4.8-10.8) K/ul Hgb 14.5 (14.0-18.0) g/dl Hct 40.8 L (42.0-52.0) % Plt Count 241 (130-400) K/uL [facility] 04/14/22 06:29 Sodium 137 Potassium 3.8 Chloride 106 Carbon Dioxide 24 BUN 5 L Creatinine 0.82 Glucose 83 Calcium 9.0 (1) Pancreatitis Acute pancreatitis complication: unspecified Chronicity: acute Pancreatitis type: alcohol induced Qualified Code(s): K85.20 - Alcohol induced acute pancreatitis without necrosis or infection
[2022-04-14] MEDS ORDERED: amLODIPine BESYLATE 5 MG TAB PO ONE (14:30)
--- NOTE | 2022-04-14 15:11 | Discharge Summary ---
Date of Service April 14, 2022 Admission HPI Per Admitting Provider Patient is a 41-year-old male with PMH HTN, tobacco use presented to ER with complaint of abdominal pain x 2 weeks. History obtained from patient and outpatient chart review. Patient reports sharp epigastric pain that is nonradiating. Abdominal pain is aggravated with eating. If he eats more than a very small amount has nausea with associated vomiting. Reports has been having small amount loose stool daily. Has been taking OTC reflux medicine without relief. Drinks 3-6 beers daily. Last drink reported 3 days ago. Denies history of alcohol withdrawal, seizures or DTs. History hypertension however has not been taking medications for over 6 years. Reports when he was previously on BP meds he felt like he had dizziness and headache with taking medicine so he stopped taking. Yesterday established care with [facility] provider. Had labs drawn yesterday with elevated lipase. Today had CT abdomen pelvis that suggested pancreatitis and patient was referred to ER for further evaluation. Reports chronic intermittent non-productive cough that he relates to smoking. Yesterday in clinic had elevated BP of 166/88 and he was prescribed losartan, however has not started yet. Denies fever/chills, diaphoresis, hematemesis, hematochezia, melena, MONTERO, dizziness, syncope, vision changes, neck pain, CP, SOB, orthopnea, palpitations, sore throat, choking, otalgia, rhinorrhea, paresthesias, weakness, extremity weakness, extremity edema, rashes, urinary symptoms. Denies history of abdominal surgery. Denies ill contacts. Outpatient records reviewed 04/12/[address] abdomen pelvis with IV and oral contrast: 1. mild peripancreatic stranding suggestive of acute interstitial pancreatitis. Correlate with lipase 2. Short segment small bowel intussusception in the left mid abdomen. This most often an incidental finding of no clinical significance. However, would consider short-term follow-up CT or MRI enterography to ensure resolution and exclude underlying mass lead point. 3. Mild thickened appearance of the descending and sigmoid colon wall could represent mild colitis. There is mild diverticulosis without focal inflammation to suggest acute diverticulitis. 4. A few small hypodense liver lesions are indeterminate. If there is no history of malignancy these are most likely benign. If further characterization is desired, consider contrast-enhanced MRI of the abdomen. Admission Exam Per Admitting Provider General: no acute distress, WDWN Head: normocephalic, atraumatic Eyes: conjunctiva non-injected, anicteric ENT: normal inspection external ears, nose, mucous membranes moist Neck: supple, trachea midline, non-tender Lungs: no respiratory distress, +wheezing throughout, no rhonchi/rales CV: RRR, no murmur, no pretibial edema Abd: normal BS, soft, +tenderness to palpation epigastric without rebound or guarding Ext: no cyanosis, no calf tenderness Neuro: A&O x 3, no focal deficits noted, normal affect Skin: warm, dry Principal Diagnosis Acute pancreatitis Hepatic lesions Complex cysts of left kidney Discharge Data Allergies Allergy/AdvReac Type Severity Reaction Status Date / Time No Known Allergies Allergy Verified 04/12/22 16:10 Consultations 04/12/22 15:33 ED Decision to Admit Stat 04/12/22 18:11 Consult General Surgery Routine Procedures Performed Laboratory Results WBC 6.57 K/ul (4.8-10.8) 04/14/22 06:29 RBC 4.01 M/uL (4.70-6.10) L 04/14/22 06:29 Hgb 14.5 g/dl (14.0-18.0) 04/14/22 06:29 Hct 40.8 % (42.0-52.0) L 04/14/22 06:29 MCV 101.7 fL (80.0-100.0) H 04/14/22 06:29 MCH 36.2 pg (25.0-34.0) H 04/14/22 06:29 MCHC 35.5 g/dL (32.0-36.0) 04/14/22 06:29 RDW Std Deviation 52.9 fL (36.4-46.3) H 04/14/22 06:29 RDW Coeff of Henry 13.9 % (11.5-14.5) 04/14/22 06:29 Plt Count 241 K/uL (130-400) 04/14/22 06:29 MPV 9.4 fL (9.4-12.4) 04/14/22 06:29 Immature Gran % (Auto) 0.4 % 04/12/22 14:40 Neut % (Auto) 55.5 % 04/12/22 14:40 Lymph % (Auto) 32.8 % 04/12/22 14:40 Boundary % (Auto) 9.1 % 04/12/22 14:40 Eos % (Auto) 1.8 % 04/12/22 14:40 Baso % (Auto) 0.4 % 04/12/22 14:40 Neut # (Auto) 5.01 K/uL (1.40-6.50) 04/12/22 14:40 Lymph # (Auto) 2.96 K/uL (1.2-3.4) 04/12/22 14:40 Boundary # (Auto) 0.82 K/uL (0.11-0.59) H 04/12/22 14:40 Eos # (Auto) 0.16 K/uL (0-0.50) 04/12/22 14:40 Baso # (Auto) 0.04 K/uL (0-0.2) 04/12/22 14:40 Immature Gran # (Auto) 0.04 K/uL (0.01-0.20) 04/12/22 14:40 Sodium 137 mmol/L (136-145) 04/14/22 06:29 Potassium 3.8 mmol/L (3.5-5.1) 04/14/22 06:29 Chloride 106 mmol/L (98-107) 04/14/22 06:29 Carbon Dioxide 24 mmol/L (21-32) 04/14/22 06:29 Anion Gap 7 (3-11) 04/14/22 06:29 BUN 5 mg/dl (6-23) L 04/14/22 06:29 Creatinine 0.82 mg/dl (0.6-1.4) 04/14/22 06:29 Est Cr Clr Drug Dosing 136.4 ml/min 04/14/22 06:29 Est GFR ( Amer) 126.4 ml/min 04/14/22 06:29 Est GFR (Non-Af Amer) 109.1 ml/min 04/14/22 06:29 BUN/Creatinine Ratio 6.1 (10-20) L 04/14/22 06:29 Glucose 83 mg/dl (70-99(Fasting)) 04/14/22 06:29 Calcium 9.0 mg/dl (8.5-10.1) 04/14/22 06:29 Magnesium 1.8 mg/dl (1.7-2.4) 04/14/22 06:29 Total Bilirubin 0.8 mg/dl (0.2-1.0) 04/13/22 08:40 AST 14 U/L (13-39) 04/13/22 08:40 ALT 10 U/L (7-52) 04/13/22 08:40 Alkaline Phosphatase 65 U/L (34-104) 04/13/22 08:40 Total Protein 6.4 gm/dl (6.0-8.3) 04/13/22 08:40 Albumin 3.6 gm/dl (3.4-5.0) 04/13/22 08:40 Globulin 2.8 gm/dl (2.5-4.0) 04/13/22 08:40 Albumin/Globulin Ratio 1.3 (0.9-2) 04/13/22 08:40 Lipase 278 U/L (11-82) H 04/13/22 08:40 SARS-CoV-2, RNA, NAAT NEGATIVE (NEGATIVE) 04/12/22 15:40 Impressions Abdomen MRI 04/12/22 19:20 MR abdomen wo/w con HISTORY: 41 years-old Male indeterminate liver lesions on outpt CT follow-up study in a patient with indeterminate liver lesions COMPARISON: Ultrasound of same day, CT 04/22/2022 TECHNIQUE: Multiplanar multisequence MRI of the abdomen was obtained both with and without the use of 10 cc Gadavist FINDINGS: Circus Hand localizer images demonstrate no gross extra abdominal abnormality. Mild to moderate intervertebral disc space narrowing at L5-S1 with posterior disc osteophyte complex again noted. No acute fracture identified. The spleen, gallbladder and adrenal glands are unremarkable. There is mild interstitial and peripancreatic edema involving the body and tail of the pancreas. No pancreatic ductal dilation, pancreatic lesion or peripancreatic fluid collection. The portal, splenic and superior mesenteric veins appear patent. Unremarkable aorta and IVC. No bowel obstruction or bowel wall thickening. Unremarkable soft tissues. Cortical scarring with atrophy of the mid to inferior pole left kidney. There are a few cysts again noted within the bilateral kidneys measuring up to 1.4 cm on the right and 1.6 cm on the left. A few cysts within the superior pole left kidney demonstrate areas of intrinsic increased T1 signal suggestive of proteinaceous or hemorrhagic cysts, notably a 1.4 cm cyst of the superior pole left kidney with a thin internal septation. There are at least eight T2 hyperintense foci noted within the right hepatic lobe, the largest measuring 1.1 cm on image 10 series 5. Most of these foci only measure a few millimeters and are too small to characterize. These lesions are difficult to evaluate secondary to motion artifact and small size. There is questioned mild peripheral discontinuous nodular enhancement within the 1.1 cm lesion. Unremarkable MRCP images. The common bile duct is normal measuring 3 mm. No pancreatic ductal dilation. IMPRESSION: 1. Findings compatible with mild acute uncomplicated pancreatitis. No evidence of pancreatic necrosis or acute peripancreatic fluid collection. 2. Unremarkable gallbladder without biliary ductal dilation. 3. Several mostly subcentimeter hepatic lesions are suboptimally evaluated secondary to the small size and motion artifact and are favored to be benign. These may represent small hemangiomas. 4. Cortical scarring with severe atrophy of the mid to inferior pole left kidney. 5. Complex cysts of the superior pole left kidney including a 1.1 cm lesion with a central septation. Six-month follow-up ultrasound recommended. ACT 112: Negative or not required by law. The above report was generated using voice recognition software. It may contain grammatical, syntax or spelling errors. Electronically signed by: Thanh Morales M.D. 04/13/2022 12:06 PM Gallbladder Ultrasound 04/12/22 21:17 ABDOMINAL ULTRASOUND, RIGHT UPPER QUADRANT HISTORY: Acute epigastric abdominal pain pancreatitis. COMPARISON: MRI abdomen of same day. FINDINGS: Pancreas: The pancreas is mostly obscured by bowel gas. No acute peripancreatic fluid collection identified by ultrasound. Liver: There are 3 hyperechoic lesions within the right lobe of the liver, largest of which measures 1.7 x 1.1 x 1.5 cm. The 2 other lesions are subcentimeter. Hepatopedal flow within the main portal vein. Gallbladder: No gallbladder wall thickening. Trace gallbladder sludge. No gallstones. CBD: 0.4 cm Right kidney: No hydronephrosis. 1.3 x 1.2 x 1.3 cm septated cyst within the inferior pole right kidney. IMPRESSION: 1. The pancreas is mostly obscured by bowel gas. 2. No cholelithiasis or sonographic evidence of acute cholecystitis. 3. There are three indeterminate hyperechoic small lesions within the liver. Please refer to the MRI abdomen study of same day for additional details. ACT 112: Negative or not required by law. Electronically signed by: Thanh Morales M.D. 04/13/2022 6:45 AM Ordered Studies 04/12/22 19:20 MR abdomen wo/w con Routine 04/12/22 21:17 US gallbladder Urgent Hospital Course (1) Pancreatitis: (2) Epigastric pain: Patient is a 41-year-old male with PMH HTN, tobacco use presented to ER with complaint of nonradiating sharp epigastric abdominal pain x 2 weeks, aggravated with eating with associated vomiting. In ER afebrile. No leukocytosis. Lipase: 538. LFTs WNL Acute pancreatitis: POA --Likely due to alcohol use --MRI Abdomen:Findings compatible with mild acute uncomplicated pancreatitis. No evidence of pancreatic necrosis or acute peripancreatic fluid collection. Unremarkable gallbladder without biliary ductal dilation. Several mostly subcentimeter hepatic lesions are suboptimally evaluated secondary to the small size and motion artifact and are favored to be benign. These may represent small hemangiomas. Cortical scarring with severe atrophy of the mid to inferior pole left kidney. Complex cysts of the superior pole left kidney including a 1.1 cm lesion with a central septation. Six-month follow-up ultrasound recommended. --Gall Bladder USD:The pancreas is mostly obscured by bowel gas. No cholelithiasis or sonographic evidence of acute cholecystitis. There are three indeterminate hyperechoic small lesions within the liver. Please refer to the MRI abdomen study of same day for additional details. -- Advised to quit alcohol -Appreciate surgery input --Clear liquid diet >>>Advanced to low fat diet today --Decrease IV fluids --Pain control --Lipase levels trended down --Plan to discharge home today if tolerated diet Hepatic lesions Likely small hemangiomas Advised to follow-up as outpatient Complex cysts of the left kidney Incidental finding on imaging May need repeat imaging in 6 months to monitor Alcohol use Monitor for withdrawal Ativan as needed Continue thiamine, folic acid Counseled to quit drinking (3) HTN (hypertension): H/O hypertension. Not treated with medications for over 6 years per patient self discontinuing PCPs office prescribed losartan 50 mg daily yesterday. Did not start taking yet -- Continue losartan --Hydralazine as needed (4) Abnormal CT of the abdomen: 04/12/[address] abdomen pelvis with IV and oral contrast: Short segment small bowel intussusception in the left mid abdomen. This most often an incidental finding of no clinical significance. However, would consider short-term follow-up CT or MRI enterography to ensure resolution and exclude underlying mass lead point. Mild thickened appearance of the descending and sigmoid colon wall could represent mild colitis. There is mild diverticulosis without focal inflammation to suggest acute diverticulitis. A few small hypodense liver lesions are indeterminate. If there is no history of malignancy these are most likely benign. If further characterization is desired, consider contrast-enhanced MRI of the abdomen. -- MRI did not show any intussusception or small bowel tumor No surgical intervention needed Appreciate surgery input (5) GERD (gastroesophageal reflux disease): Continue PPI (6) Tobacco use: Smoking cessation encouraged Nicotine patch DVT Prophylaxis SCDs for now Total Time Total Time Spent Total Time Spent (In Minutes): 48 minutes Discharge Plan Discharge Items Patient Disposition: Home - Self-Care Reason For Visit: ABD PAIN Discharge Diagnosis: Acute pancreatitis Hepatic lesions Complex cysts of left kidney Activity: Per Instructions section Exercise/Sports: Gradually increase as tolerated Non-emergency contact: Primary Care Provider Call non-emergency contact if: you have any medication questions, your symptoms worsen, your pain is concerning for you and you have a fever Follow-up/Referrals: Nadine Waters CRNP [Primary Care Provider] - (Date & Time 04/20/2022 2:00 PM Provider Valerie Turcios Department Family Practice [facility] ) Diet: Low Fat Addtl Attending Provider Instructions: Follow-up with your primary care physician Nadine Waters on 04/20/2022 2:00 PM as scheduled -- Quit drinking alcohol as advised. --- Follow-up with your physician for further monitoring/management of hepatic lesions, renal cyst as advised. --- Monitor your blood pressure regularly at home. Discussed with your physician for further adjustment of blood pressure medications as needed. Seek immediate medical attention if your symptoms reoccur or worsen Please take all medications as instructed on discharge list below. Please call if you have any questions or problems. You can reach a [facility] hospitalist on duty at [facility] 24 hours a day by calling [phone] Pending Studies at Discharge: No Stand-Alone Forms: My [facility], Smoking Cessation Medications and DC Order Prescriptions: New thiamine HCl (vitamin B1) 100 mg Tablet 100 mg PO QAM Qty: 15 0RF amlodipine [Norvasc] 5 mg Tablet 5 mg PO QAM Qty: 30 0RF Continued losartan 50 mg tablet 50 mg PO DAILY Rx Instructions: PER PT "NOT STARTED, DID NOT BARREL RIFLER FROM PHARMACY YET". pantoprazole 40 mg tablet,delayed release (DR/EC) 40 mg PO DAILY Discharge Orders: Discharge Order (Routine); Ordered 04/14/22 Ordered By: Espinoza Sierra Admission Data Admit Date/Time: 04/12/22 16:58 Attending Provider: Espinoza Sierra Admit Provider: Jennifer Etienne Primary Care Provider: Nadine Waters Other Providers: Jennifer Etienne ; Edgardo Bolaños
[2022-04-15] MEDS ORDERED: amLODIPine BESYLATE 5 MG TAB PO SCH (09:00)
== END 2022-04-14 15:55 | disposition home or self-care (01) | DRG 440 ==
LOC: ED 13:13 → 2W 16:58 → SUATTDRO 16:58 → 2W 18:02